=== PATIENT | female | born 1970 | race Caucasian/White ===

== ENCOUNTER 2017-12-10 09:45 | Observation (INO) | payer SELFPAY ==
[~2017-12-10] VITALS: Ht 162.6 cm; Wt 81.0 kg
[2017-12-10] MEDS ORDERED: SODIUM CHLOR 0.9% 1000 ML INJ 1,000 ML IV ONE (10:02)
--- NOTE | 2017-12-10 10:13 | PD ---
HPI Chief Complaint: Altered Mental Status Time Seen by Provider: 10:02 Travel History International Travel<30 days: No Contact w/Intl Traveler<30days: No History of Present Illness HPI 47 y/o female was found by bystanders that called an ambulance. When the ambulance team arrived on scene she appeared intoxicated. It is unknown what medication she took and how much. Patient states she took her meds but she doesn't know if she took something else. She states she is down here visiting with her boyfriend. She states she has bipolar disorder. Her medications that she had on her are gabapentin, lamotrigine, trazodone, hydroxyzine, Naproxine, rexalti per the ambulance team. History is limited on initial evaluation. [facility] Past Medical History Bipolar Disorder: Yes ?: Unknown Past Surgical History Other Surgery: Yes (tooth) Social History Alcohol Use: No Tobacco Use: No (she doesn't think so) Substance Use: No Allergies-Medications (Allergen,Severity, Reaction): Coded Allergies: No Allergy Information Available (Unverified , 12/10/17) Review of Systems ROS Limitations: Altered Mental Status Except as stated in HPI: all other systems reviewed are Neg Physical Exam Narrative GENERAL: 47-year-old female who appears drowsy but awakens to voice SKIN: Focused skin assessment warm/dry. HEAD: Atraumatic. Normocephalic. EYES: Pinpoint Pupils equal and round. No scleral icterus. No injection or drainage. ENT: No nasal bleeding or discharge. Mucous membranes pink and moist. NECK: Trachea midline. No JVD. CARDIOVASCULAR: Regular rate and rhythm. RESPIRATORY: No accessory muscle use. Clear to auscultation. Breath sounds equal bilaterally. GASTROINTESTINAL: Abdomen soft, non-tender, nondistended. MUSCULOSKELETAL: No obvious deformities. No clubbing. No cyanosis. No edema. NEUROLOGICAL: Awake and alert to name, location. Moves all extremities. Slurred speech. Data Data Last Documented VS Vital Signs Date Time Temp Pulse Resp B/P (MAP) Pulse Ox O2 Delivery O2 Flow Rate FiO2 12/10/17 10:26 97 12 119/78 (92) 98 Room Air Orders Orders Electrocardiogram (12/10/17 10:02) Complete Blood Count With Diff (12/10/17 10:02) Comprehensive Metabolic Panel (12/10/17 10:02) Prothrombin Time / Inr (Pt) (3/20/18 10:02) Act Partial Throm Time (Ptt) (12/10/17 10:02) Iv Access Insert/Monitor (12/10/17 10:02) Ecg Monitoring (12/10/17 10:02) Oximetry (12/10/17 10:02) Sodium Chloride 0.9% Flush (Ns Flush) (12/10/17 10:15) Sodium Chlor 0.9% 1000 Ml Inj (Ns 1000 M (12/10/17 10:02) Call Poison Control (12/10/17 10:02) Drug Screen, Random Urine (12/10/17 10:02) Alcohol (Ethanol) (12/10/17 10:02) Salicylates (Aspirin) (12/10/17 10:02) Tylenol (Acetaminophen) (12/10/17 10:02) [place] (Li) (12/10/17 11:26) Place In Observation (12/10/17 ) Vital Signs (Adult) Q4H (12/10/17 12:26) Activity Oob Ad Nisreen (12/10/17 12:26) Concrete Crafts[employer] / Telemetry .CONTINUOUS (12/10/17 12:26) Diet Regular Basic (12/10/17 Lunch) Sodium Chlor 0.9% 1000 Ml Inj (Ns 1000 M (12/10/17 12:26) Sodium Chloride 0.9% Flush (Ns Flush) (12/10/17 12:30) Sodium Chloride 0.9% Flush (Ns Flush) (12/10/17 21:00) Acetaminophen (Tylenol) (12/10/17 12:30) Ondansetron Inj (Zofran Inj) (12/10/17 12:30) Basic Metabolic Panel (Bmp) (12/11/17 06:00) Complete Blood Count With Diff (12/11/17 06:00) Resp Oxygen Janusz C Titrat 1-4 L (12/10/17 ) Pt Request For Service (12/10/17 12:26) Case Management Consult (12/10/17 12:26) Enoxaparin Inj (Lovenox Inj) (12/10/17 12:30) Scd Bilateral/Knee High ROSE MARY.BID (12/10/17 12:26) Peter Bilateral/Knee High ROSE MARY.QSHIFT (12/10/17 12:26) Naloxone Inj (Narcan Inj) (12/10/17 12:30) Docusate Sodium-Senna (Nathalie-Colace) (12/10/17 21:00) Magnesium Hydroxide Liq (Milk Of Magnesi (12/10/17 12:30) Sennosides (Senokot) (12/10/17 12:30) Bisacodyl Supp (Dulcolax Supp) (12/10/17 12:30) Lactulose Liq (Lactulose Liq) (12/10/17 12:30) Admit Order (Ed Use Only) (12/10/17 12:29) Consult Psychiatry (12/10/17 ) (Hub Use Only)Inp Phy Cons/Ref (12/10/17 ) Labs Laboratory Tests Test 12/10/17 10:05 12/10/17 10:08 12/10/17 11:10 Urine Opiates Screen NEG Urine Barbiturates Screen NEG Urine Amphetamines Screen POS Urine Benzodiazepines Screen POS Urine Cocaine Screen NEG Urine Cannabinoids Screen NEG White Blood Count 4.7 TH/MM3 Red Blood Count 4.41 MIL/MM3 Hemoglobin 13.3 GM/DL Hematocrit 39.0 % Mean Corpuscular Volume 88.3 FL Mean Corpuscular Hemoglobin 30.0 PG Mean Corpuscular Hemoglobin Concent 34.0 % Red Cell Distribution Width 12.2 % Platelet Count 167 TH/MM3 Mean Platelet Volume 8.2 FL Neutrophils (%) (Auto) 67.3 % Lymphocytes (%) (Auto) 19.5 % Monocytes (%) (Auto) 10.0 % Eosinophils (%) (Auto) 2.5 % Basophils (%) (Auto) 0.7 % Neutrophils # (Auto) 3.2 TH/MM3 Lymphocytes # (Auto) 0.9 TH/MM3 Monocytes # (Auto) 0.5 TH/MM3 Eosinophils # (Auto) 0.1 TH/MM3 Basophils # (Auto) 0.0 TH/MM3 CBC Comment DIFF FINAL Differential Comment Blood Urea Nitrogen 11 MG/DL Creatinine 0.88 MG/DL Random Glucose 70 MG/DL Total Protein 7.5 GM/DL Albumin 3.9 GM/DL Calcium Level 8.6 MG/DL Alkaline Phosphatase 110 U/L Aspartate Amino Transf (AST/SGOT) 43 U/L Alanine Aminotransferase (ALT/SGPT) 34 U/L Total Bilirubin 0.4 MG/DL Sodium Level 138 MEQ/L Potassium Level 4.4 MEQ/L Chloride Level 102 MEQ/L Carbon Dioxide Level 27.0 MEQ/L Anion Gap 9 MEQ/L Estimat Glomerular Filtration Rate 69 ML/MIN Salicylates Level LESS THAN 1.7 MG/DL Acetaminophen Level LESS THAN 2.0 MCG/ML Ethyl Alcohol Level LESS THAN 3 MG/DL MDM Medical Decision Making Medical Screen Exam Complete: Yes Emergency Medical Condition: Yes Medical Record Reviewed: Yes (past history confirmed) Interpretation(s) CBC & BMP Diagram 12/10/17 10:08 Total Protein 7.5, Albumin 3.9, Calcium Level 8.6, Alkaline Phosphatase 110, Aspartate Amino Transf (AST/SGOT) 43 H, Alanine Aminotransferase (ALT/SGPT) 34, Total Bilirubin 0.4 Differential Diagnosis Overdose, alcohol intoxication, electrolyte abnormality Narrative Course Will check blood work and place Pitts act and monitor ed workup shows amphetamines and benzodiazepines on urine drug screen, patient still drowsy but awakens to voice, given unknown ingestion amount and altered mental status, will place in observation for additional clearance Physician Communication Physician Communication dr machado agrees to admit Diagnosis Primary Impression: Altered mental status Qualified Codes: R41.82 - Altered mental status, unspecified Additional Impression: Overdose Qualified Codes: T50.904A - Poisoning by unspecified drugs, medicaments and biological substances, undetermined, initial encounter Admitting Information Admitting Physician Requests: Observation Melissa Kumar MD Dec 10, 2017 10:13
[2017-12-10] MEDS ORDERED: SODIUM CHLORIDE 0.9% FLUSH 10 ML FLUSH IVF PRN (10:15)
[2017-12-10 10:26] VITALS: BP 119/78; PULSE 97; RESP 12; O2SAT 98
[2017-12-10 10:42] LABS: AUTOMATED NEUTROPHIL # 3.2 TH/MM3 (1.8-7.7); BASOPHIL % 0.7 % (0.0-2.0); EOSINOPHIL # 0.1 TH/MM3 (0-0.4); EOSINOPHIL % 2.5 % (0.0-4.0); HEMOGLOBIN 13.3 GM/DL (11.6-15.3); LYMPH % 19.5 % (9.0-44.0); LYMPHOCYTE # 0.9 TH/MM3 (1.0-4.8); MEAN CELL VOLUME 88.3 FL (80.0-100.0); MEAN PLATELET VOLUME 8.2 FL (7.0-11.0); MONOCYTE # 0.5 TH/MM3 (0-0.9); NEUT % 67.3 % (16.0-70.0); PLATELET COUNT 167 TH/MM3 (150-450); RED BLOOD COUNT 4.41 MIL/MM3 (4.00-5.30); RED CELL DISTRIBUTION WIDTH 12.2 % (11.6-17.2); WHITE BLOOD COUNT 4.7 TH/MM3 (4.0-11.0)
[2017-12-10 10:58] LABS: ALKALINE PHOSPHATASE 110 U/L (45-117); TOTAL BILIRUBIN ADULT 0.4 MG/DL (0.2-1.0); TOTAL PROTEIN 7.5 GM/DL (6.4-8.2)
[2017-12-10 11:00] LABS: ALBUMIN 3.9 GM/DL (3.4-5.0); ALT (GPT) 34 U/L (10-53); AST (GOT) 43 U/L (15-37); BLOOD UREA NITROGEN 11 MG/DL (7-18); CALCIUM 8.6 MG/DL (8.5-10.1); CHLORIDE 102 MEQ/L (98-107); CREATININE 0.88 MG/DL (0.50-1.00); GLOMERULAR FILTRATION RATE 69 ML/MIN (>89); GLUCOSE,RANDOM 70 MG/DL (74-106); SODIUM (NA) 138 MEQ/L (136-145)
[2017-12-10 11:01] LABS: ACETAMINOPHEN LESS THAN 2.0 MCG/ML (10.0-30.0)
[2017-12-10] MEDS ORDERED: SODIUM CHLORIDE 0.9% FLUSH 10 ML FLUSH IV FLUSH PRN (12:30)
[2017-12-10] MEDS ORDERED: ACETAMINOPHEN 325 MG TAB PO PRN (12:30)
[2017-12-10] MEDS ORDERED: ONDANSETRON HCL 4 MG/2 ML VIAL IVP PRN (12:30)
[2017-12-10] MEDS ORDERED: LACTULOSE SYRUP 20 GM/30 ML CUP PO PRN (12:30)
[2017-12-10] MEDS ORDERED: BISACODYL 10 MG SUPP RECTAL PRN (12:30)
[2017-12-10] MEDS ORDERED: MAGNESIUM HYDROXIDE SUSP 30 ML CUP PO PRN (12:30)
[2017-12-10] MEDS ORDERED: SENNOSIDES 8.6 MG TAB PO PRN (12:30)
[2017-12-10] MEDS ORDERED: NALOXONE HCL 0.4 MG/ML AMP IV PUSH PRN (12:30)
[2017-12-10 13:22] VITALS: BP 114/78; PULSE 81; RESP 8; TEMP 97.5; O2SAT 98
--- NOTE | 2017-12-10 13:39 | HHI.HP ---
[facility] Phys[facility] Unknown Admission Diagnosis altered mental status Diagnoses: Chief Complaint: altered mental status Travel History International Travel<30 Days: No Contact w/Intl Traveler <30 Da: No History of Present Illness Written by Alanna Rahman, acting as scribe for Dr. Rojas on 12/10/17 at 13:36. 47-year-old female with history of depression, anxiety, and bipolar disorder, [place] [facility] [place] status. History is limited from the patient as she remains altered and drowsy. She is oriented to self, birthdate, knows president Marcell, knows she is in a hospital but admits she is confused on whether she is in [place] or [place], does not know the date. She is not able to recall the events leading up to her admission. [facility] reported the patient appeared intoxicated and had multiple medications on her including gabapentin, lamotrigine, trazodone, hydroxyzine, Naproxen, Rexulti. The patient is reportedly [place] from [id number] with her boyfriend and no previous medical records available in the EMR. The patient has been placed under Pitts Act by the ER for suspected overdose. Upon arrival, UDS positive for amphetamines and benzos. Etoh level wnl. CBC and BMP essentially unremarkable. She has been admitted to observation for further evaluation and treatment. Review of Systems ROS Limitations: Intoxication, Altered Mental Status Except as stated in HPI: all other systems reviewed are Neg Past Family Social History Past Medical History Bipolar disorder Depression Anxiety Past Surgical History Dental surgeries Reported Medications Reported by EMS: gabapentin, lamotrigine, trazodone, hydroxyzine, Naproxen, Rexulti Allergies: Coded Allergies: No Allergy Information Available (Unverified , 12/10/17) Active Ordered Medications Current Medications Medications (Trade) Dose Ordered Sig/Jayne Route Start Time Stop Time Status Last Admin (NS Flush) 2 ml UNSCH PRN IVF 12/10/17 10:15 Sodium Chloride 1,000 ml @ 100 mls/hr Q10H IV 12/10/17 12:26 UNV (NS Flush) 2 ml UNSCH PRN IV FLUSH 12/10/17 12:30 UNV (NS Flush) 2 ml BID IV FLUSH 12/10/17 21:00 UNV (Tylenol) 650 mg Q4H PRN PO 12/10/17 12:30 UNV (Zofran Inj) 4 mg Q6H PRN IVP 12/10/17 12:30 UNV (Lovenox Inj) 40 mg Q24H SQ 12/10/17 12:30 UNV (Narcan Inj) 0.4 mg UNSCH PRN IV PUSH 12/10/17 12:30 UNV (Nathalie-Colace) 1 tab BID PO 12/10/17 21:00 UNV (Milk Of Magnesia Liq) 30 ml Q12H PRN PO 12/10/17 12:30 UNV (Senokot) 17.2 mg Q12H PRN PO 12/10/17 12:30 UNV (Dulcolax Supp) 10 mg DAILY PRN RECTAL 12/10/17 12:30 UNV (Lactulose Liq) 30 ml DAILY PRN PO 12/10/17 12:30 UNV Family History Family history positive for hypertension, schizophrenia Social History Denies any tobacco use. Admits to occasional alcohol use. Admits to methamphetamine use, most recently last week Also admits to using LSD recently States a long time ago used heroin Physical Exam Vital Signs Vital Signs Date Time Temp Pulse Resp B/P (MAP) Pulse Ox O2 Delivery O2 Flow Rate FiO2 12/10/17 13:22 97.5 81 8 114/78 (90) 98 12/10/17 10:26 97 12 119/78 (92) 98 Room Air Physical Exam GENERAL: Well-nourished, well-developed middle aged female patient in [facility]. SKIN: Warm and dry. No rash. HEAD: Normocephalic. Atraumatic. EYES: Pupils equal and round. No scleral icterus. No injection or drainage. ENT: No nasal bleeding or discharge. Mucous membranes pink and moist. NECK: Supple. Trachea midline. CARDIOVASCULAR: Regular rate and rhythm. No murmur appreciated. RESPIRATORY: No accessory muscle use. Clear to auscultation. Breath sounds equal bilaterally. GASTROINTESTINAL: Abdomen soft, non-tender, nondistended. Normoactive bowel sounds x4. MUSCULOSKELETAL: No obvious deformities. Extremities without clubbing, cyanosis , or edema. NEUROLOGICAL: Drowsy. No obvious cranial nerve deficits. Motor grossly within normal limits. Moving all extremities spontaneously. 5/5 muscle strength of bilateral upper and lower extremities. Normal speech. No facial droop, tongue deviation, or lid lag. Laboratory Laboratory Tests Test 12/10/17 10:05 12/10/17 10:08 12/10/17 11:10 Urine Opiates Screen NEG Urine Barbiturates Screen NEG Urine Amphetamines Screen POS Urine Benzodiazepines Screen POS Urine Cocaine Screen NEG Urine Cannabinoids Screen NEG White Blood Count 4.7 Red Blood Count 4.41 Hemoglobin 13.3 Hematocrit 39.0 Mean Corpuscular Volume 88.3 Mean Corpuscular Hemoglobin 30.0 Mean Corpuscular Hemoglobin Concent 34.0 Red Cell Distribution Width 12.2 Platelet Count 167 Mean Platelet Volume 8.2 Neutrophils (%) (Auto) 67.3 Lymphocytes (%) (Auto) 19.5 Monocytes (%) (Auto) 10.0 Eosinophils (%) (Auto) 2.5 Basophils (%) (Auto) 0.7 Neutrophils # (Auto) 3.2 Lymphocytes # (Auto) 0.9 Monocytes # (Auto) 0.5 Eosinophils # (Auto) 0.1 Basophils # (Auto) 0.0 CBC Comment DIFF FINAL Differential Comment Blood Urea Nitrogen 11 Creatinine 0.88 Random Glucose 70 Total Protein 7.5 Albumin 3.9 Calcium Level 8.6 Alkaline Phosphatase 110 Aspartate Amino Transf (AST/SGOT) 43 Alanine Aminotransferase (ALT/SGPT) 34 Total Bilirubin 0.4 Sodium Level 138 Potassium Level 4.4 Chloride Level 102 Carbon Dioxide Level 27.0 Anion Gap 9 Estimat Glomerular Filtration Rate 69 Salicylates Level LESS THAN 1.7 Acetaminophen Level LESS THAN 2.0 Ethyl Alcohol Level LESS THAN 3 Result Diagram: 12/10/17 1008 12/10/17 1008 Caprini VTE Risk Assessment Caprini VTE Risk Assessment: No/Low Risk (score <= 1) Caprini Risk Assessment Model Point Value = 1 Point Value = 2 Point Value = 3 Point Value = 5 Age 41-60 Minor surgery BMI > 25 kg/m2 Swollen legs Varicose veins or History of unexplained or recurrent spontaneous Oral contraceptives or hormone replacement Sepsis (< 1 month) Serious lung disease, including pneumonia (< 1 month) Abnormal pulmonary function Acute myocardial infarction Congestive heart failure (< 1 month) History of inflammatory bowel disease Medical patient at bed rest Age 61-74 Arthroscopic surgery Major open surgery (> 45 min) Laparoscopic surgery (> 45 min) Malignancy Confined to bed (> 72 hours) Immobilizing plaster cast Central venous access Age >= 75 History of VTE Family history of VTE Factor V Leiden Prothrombin [id number] Lupus anticoagulant Anticardiolipin antibodies Elevated serum homocysteine Heparin-induced thrombocytopenia Other congenital or acquired thrombophilia Stroke (< 1 month) Elective arthroplasty Hip, pelvis, or leg fracture Acute spinal cord injury (< 1 month) Prophylaxis Regimen Total Risk Factor Score Risk Level Prophylaxis Regimen 0-1 Low Early ambulation 2 Moderate Order ONE of the following: *Sequential Compression Device (SCD) *Heparin 5000 units SQ BID 3-4 Higher Order ONE of the following medications: *Heparin 5000 units SQ TID *Enoxaparin/Lovenox 40 mg SQ daily (WT < 150 kg, CrCl > 30 mL/min) *Enoxaparin/Lovenox 30 mg SQ daily (WT < 150 kg, CrCl > 10-29 mL/min) *Enoxaparin/Lovenox 30 mg SQ BID (WT < 150 kg, CrCl > 30 mL/min) AND/OR *Sequential Compression Device (SCD) 5 or more Highest Order ONE of the following medications: *Heparin 5000 units SQ TID (Preferred with Epidurals) *Enoxaparin/Lovenox 40 mg SQ daily (WT < 150 kg, CrCl > 30 mL/min) *Enoxaparin/Lovenox 30 mg SQ daily (WT < 150 kg, CrCl > 10-29 mL/min) *Enoxaparin/Lovenox 30 mg SQ BID (WT < 150 kg, CrCl > 30 mL/min) AND *Sequential Compression Device (SCD) Assessment and Plan Problem List: (1) Toxic encephalopathy ICD Code: G92 - Toxic encephalopathy (2) Altered mental status ICD Code: R41.82 - Altered mental status, unspecified Status: Acute (3) Overdose ICD Code: T50.901A - Poisoning by unspecified drugs, medicaments and biological substances, accidental (unintentional), initial encounter Status: Acute Assessment and Plan 47-year-old female with history of depression and bipolar disorder, [place] via [facility] [place] with [place] status. History is limited from the patient as she remains altered and drowsy. Ambulance reported the patient appeared intoxicated and had multiple medications on her including gabapentin, lamotrigine, trazodone, hydroxyzine, Naproxen, Rexulti. Acute Toxic Encephalopathy: Suspect polypharmacy vs overdose. UDS positive for amphetamines and benzos. Etoh level wnl. CBC and BMP essentially unremarkable. -check lithium level -continue supportive treatment with IVF hydration, O2 as needed -monitor on telemetry -neuro checks, seizure precautions -consider head CT if no improvement Pitts Act, Possible Overdose: -consult psychiatry for further evaluation Anxiety/Depression/Bipolar Disorder: chronic -holding all medications with encephalopathy as above -RN to update med rec melinda -psychiatry consulted as above DVT Prophylaxis: Lovenox sq This note was transcribed by VALENTIN Best . I, Dr. Denae Rojas personally performed the history, physical exam, and medical decision making; and confirmed the accuracy of the information in the transcribed note. Authenticated by Dr. Denae Rojas on 12/10/17 at 13:36. Discussed Condition With Patient, ER Problem Qualifiers (1) Altered mental status: Qualified Codes: R41.82 - Altered mental status, unspecified (2) Overdose: Qualified Codes: T50.904A - Poisoning by unspecified drugs, medicaments and biological substances, undetermined, initial encounter Alanna Rahman PA-C Dec 10, 2017 13:39 Denae Rojas MD Dec 10, 2017 13:46
[2017-12-10] MEDS ORDERED: ENOXAPARIN SODIUM 40 MG/0.4 ML SYRINGE SQ SCH (14:00)
[2017-12-10 14:02] LABS: PROTHROMBIN TIME - PATIENT 10.4 SEC (9.8-11.6)
[2017-12-10] MEDS: SODIUM CHLOR 0.9% 1000 ML INJ 1,000 ML IV SCH (14:20)
--- NOTE | 2017-12-10 14:45 | EKG ---
Date Performed: 12/10/2017 Time Performed: 10:29:51 PTAGE: 47 years EKG: Sinus rhythm NORMAL ECG NO PREVIOUS TRACING DOCTOR: Dieudonne Jeronimo Interpretating Date/Time 12/10/2017 14:43:37
[2017-12-10 16:31] VITALS: BP 107/73; PULSE 81; RESP 14; TEMP 98.7; O2SAT 98
[2017-12-10 17:55] VITALS: PULSE 76
[2017-12-10 19:58] VITALS: PULSE 88
[2017-12-10] MEDS: DOCUSATE SODIUM 50 MG/SENNA 8.6 MG TAB PO SCH (20:23)
[2017-12-10] MEDS: SODIUM CHLORIDE 0.9% FLUSH 10 ML FLUSH IV FLUSH SCH (20:23)
[2017-12-10 22:09] VITALS: BP 106/63; PULSE 83; RESP 18; TEMP 98.1; O2SAT 97
[2017-12-11] VITALS: PULSE 77
[2017-12-11] MEDS: SODIUM CHLOR 0.9% 1000 ML INJ 1,000 ML IV SCH (01:04)
[2017-12-11 04:00] VITALS: PULSE 82
[2017-12-11 07:24] VITALS: BP 129/80; PULSE 78; RESP 16; TEMP 97.8; O2SAT 97
[2017-12-11 07:42] LABS: AUTOMATED NEUTROPHIL # 1.5 TH/MM3 (1.8-7.7); EOSINOPHIL # 0.1 TH/MM3 (0-0.4); HEMATOCRIT 36.7 % (35.0-46.0); HEMOGLOBIN 12.3 GM/DL (11.6-15.3); LYMPH % 29.4 % (9.0-44.0); LYMPHOCYTE # 0.8 TH/MM3 (1.0-4.8); MEAN CELL VOLUME 89.2 FL (80.0-100.0); MEAN CORPUSCULAR HGB CONC 33.6 % (32.0-36.0); MEAN PLATELET VOLUME 7.8 FL (7.0-11.0); MONO % 11.6 % (0.0-8.0); MONOCYTE # 0.3 TH/MM3 (0-0.9); PLATELET COUNT 140 TH/MM3 (150-450); RED BLOOD COUNT 4.12 MIL/MM3 (4.00-5.30); RED CELL DISTRIBUTION WIDTH 12.4 % (11.6-17.2); WHITE BLOOD COUNT 2.7 TH/MM3 (4.0-11.0)
[2017-12-11 08:15] LABS: BICARBONATE 24.9 MEQ/L (21.0-32.0); CALCIUM 7.8 MG/DL (8.5-10.1); CREATININE 0.6 MG/DL (0.50-1.00)
[2017-12-11] MEDS: SODIUM CHLORIDE 0.9% FLUSH 10 ML FLUSH IV FLUSH SCH (09:00)
[2017-12-11] MEDS: DOCUSATE SODIUM 50 MG/SENNA 8.6 MG TAB PO SCH (09:00)
--- NOTE | 2017-12-11 09:43 | HHI.DCPOC ---
Discharge Care Plan Diagnosis: (1) Altered mental status (2) Toxic encephalopathy (3) Overdose Goals to Promote Your Health * To prevent worsening of your condition and complications * To maintain your health at the optimal level Directions to Meet Your Goals Take your medications as prescribed Follow your dietary instruction Follow activity as directed Keep your appointments as scheduled Take your immunizations and boosters as scheduled If your symptoms worsen call your PCP, if no PCP go to Urgent Care Center or Emergency Room Smoking is Dangerous to Your Health. Avoid second hand smoke Call the 24-hour hour crisis hotline for domestic abuse at Alanna Rahman PA-C Dec 11, 2017 09:43
--- NOTE | 2017-12-11 09:44 | HHI.DS ---
Discharge Summary Admission Date Dec 10, 2017 at 12:29 Discharge Date: Dec 13, 2017 Admitting Diagnosis altered mental status (1) Toxic encephalopathy ICD Code: G92 - Toxic encephalopathy (2) Altered mental status ICD Code: R41.82 - Altered mental status, unspecified Status: Acute (3) Overdose ICD Code: T50.901A - Poisoning by unspecified drugs, medicaments and biological substances, accidental (unintentional), initial encounter Status: Acute Procedures none Brief History - From Admission Written by Alanna Rahman, acting as scribe for Dr. Rojas on 12/10/17 at 13:36. 47-year-old female with history of depression, anxiety, and bipolar disorder, presents via [facility] [place] with altered mental status. History is limited from the patient as she remains altered and drowsy. She is oriented to self, birthdate, knows president Marcell, knows she is in a hospital but admits she is confused on whether she is in [place] or [place], does not know the date. She is not able to recall the events leading up to her admission. [facility] reported the patient appeared intoxicated and had multiple medications on her including gabapentin, lamotrigine, trazodone, hydroxyzine, Naproxen, Rexulti. The patient is reportedly visiting from [id number] with her boyfriend and no previous medical records available in the EMR. The patient has been placed under Pitts Act by the ER for suspected overdose. Upon arrival, UDS positive for amphetamines and benzos. Etoh level wnl. CBC and BMP essentially unremarkable. She has been admitted to observation for further evaluation and treatment. CBC/BMP: 12/11/17 0635 12/11/17 0635 Significant Findings Laboratory Tests Test 12/10/17 10:05 12/10/17 10:08 12/10/17 12:20 12/11/17 06:35 Urine Amphetamines Screen POS (NEG) Urine Benzodiazepines Screen POS (NEG) Monocytes (%) (Auto) 10.0 % (0.0-8.0) 11.6 % (0.0-8.0) Lymphocytes # (Auto) 0.9 TH/MM3 (1.0-4.8) 0.8 TH/MM3 (1.0-4.8) Random Glucose 70 MG/DL (74-106) Aspartate Amino Transf (AST/SGOT) 43 U/L (15-37) Estimat Glomerular Filtration Rate 69 ML/MIN (>89) Salicylates Level LESS THAN 1.7 MG/DL Acetaminophen Level LESS THAN 2.0 MCG/ML [place] Level LESS THAN 0.1 MEQ/L White Blood Count 2.7 TH/MM3 (4.0-11.0) Platelet Count 140 TH/MM3 (150-450) Neutrophils # (Auto) 1.5 TH/MM3 (1.8-7.7) Calcium Level 7.8 MG/DL (8.5-10.1) Chloride Level 108 MEQ/L (98-107) PE at Discharge GENERAL: Well-nourished, well-developed middle aged female patient in [facility]. CARDIOVASCULAR: Regular rate and rhythm. No murmur appreciated. RESPIRATORY: No accessory muscle use. Clear to auscultation. Breath sounds equal bilaterally. GASTROINTESTINAL: Abdomen soft, non-tender, nondistended. Normoactive bowel sounds x4. MUSCULOSKELETAL: No obvious deformities. Extremities without clubbing, cyanosis , or edema. NEUROLOGICAL: More awake and alert back at her baseline, No obvious cranial nerve deficits. Motor grossly within normal limits. Moving all extremities spontaneously. 5/5 muscle strength of bilateral upper and lower extremities. Normal speech. No facial droop, tongue deviation, or lid lag. Pt update on day of discharge Ambulating feels much better .more awake and alert No events overnight. No cp, sob, n/v/d/c. Hospital Course 47-year-old female with history of depression and bipolar disorder, [place] via [facility] [place] status. History is limited from the patient as she remains altered and drowsy. Ambulance reported the patient appeared intoxicated and had multiple medications on her including gabapentin, lamotrigine, trazodone, hydroxyzine, Naproxen, Rexulti. Acute Toxic Encephalopathy: Resollved. Suspect polypharmacy vs overdose. UDS positive for amphetamines and benzos. Etoh level wnl. CBC and BMP essentially unremarkable. -check lithium level -continue supportive treatment with IVF hydration, O2 as needed -monitor on telemetry -neuro checks, seizure precautions -consider head CT if no improvement Pitts Act, Possible Overdose: -consult psychiatry for further evaluation Anxiety/Depression/Bipolar Disorder: chronic -holding all medications with encephalopathy as above -RN to update med rec melinda -psychiatry consulted as above DVT Prophylaxis: Lovenox sq This note was transcribed by VALENTIN Best . I, Dr. Denae Rojas personally performed the history, physical exam, and medical decision making; and confirmed the accuracy of the information in the transcribed note. Authenticated by Dr. Denae Rojas on 12/10/17 at 13:36. Discussed Condition With Patient, nurse, Dr Terrell from psych Patient is ambulating. Back at baseline mentation. Cleared medically for DC . Discharge to psych unit. Pt Condition on Discharge: Stable Discharge Disposition: Disc to Psych Care Fac Discharge Time: > 30 minutes Discharge Instructions DIET: Follow Instructions for: As Tolerated, No Restrictions Activities you can perform: Regular-No Restrictions Follow up Referrals: PCP Follow-up - 1 Week Psychiatry Adult - Today Denae Rojas MD Dec 11, 2017 09:44
[2017-12-11] MEDS ORDERED: QUEtiapine FUMARATE 25 MG TAB PO ONE (09:45)
[2017-12-11 11:14] VITALS: BP 136/83; PULSE 94; RESP 18; TEMP 98.3; O2SAT 95
[2017-12-11] MEDS ORDERED: TRAZ50TA12 PO ×2 (12:01)
[2017-12-11] MEDS ORDERED: NEUR800T PO ×2 (12:01)
[2017-12-11] MEDS ORDERED: BUSP10TA PO ×2 (12:01)
[2017-12-11] MEDS ORDERED: LAMI200T PO ×2 (12:01)
[2017-12-11] MEDS ORDERED: BREX1TAB6 PO ×2 (12:01)
[2017-12-12] MEDS ORDERED: SERO25TA PO (15:52)
== END 2017-12-11 12:46 ==
LOC: NEPE 09:45 → NEDA 12:29 → NEPGCP 16:17
PROVIDERS: ADMIT Hospitalist; ATTEND Hospitalist
DX: G92 Toxic encephalopathy (principal); R41.82 Altered mental status, unspecified; T50.904A Poisoning by unspecified drugs, medicaments and biological substances, undetermined, initial encounter; F31.9 Bipolar disorder, unspecified; F41.9 Anxiety disorder, unspecified; F15.90 Other stimulant use, unspecified, uncomplicated
CPT/HCPCS: 80048; 80053; 80178; 80307; 85025; 85610; 85730; 93005; 96360; 96361; 96372; 99285; G0378; J1650; J7030

== ENCOUNTER 2017-12-11 11:58 | Inpatient (IN) | payer SELFPAY ==
[2017-12-11] MEDS ORDERED: TRAZ50TA12 PO ×2 (12:01)
[2017-12-11] MEDS ORDERED: LAMI200T PO ×2 (12:01)
[2017-12-11] MEDS ORDERED: BREX1TAB6 PO ×2 (12:01)
[2017-12-11] MEDS ORDERED: NEUR800T PO ×2 (12:01)
[2017-12-11] MEDS ORDERED: BUSP10TA PO ×2 (12:01)
[2017-12-11] MEDS ORDERED: LORazepam 1 MG TAB PO PRN ×2 (13:30→18:00)
[2017-12-11] MEDS ORDERED: MAGNESIUM HYDROXIDE SUSP 30 ML CUP PO PRN (13:30)
[2017-12-11] MEDS: busPIRone HCL 10 MG TAB PO SCH ×2 (13:30→21:07)
[2017-12-11] MEDS ORDERED: ALUMINUM/MAGNESIUM/SIMETH 30 ML CUP PO PRN (13:30)
[2017-12-11] MEDS ORDERED: LORazepam 0.5 MG TAB PO PRN (13:30)
[2017-12-11] MEDS ORDERED: ACETAMINOPHEN 325 MG TAB PO PRN (13:30)
[2017-12-11] MEDS ORDERED: LORazepam 2 MG/ML VIAL IM PRN ×2 (13:30)
[2017-12-11] MEDS: lamoTRIgine 100 MG TAB PO SCH (13:30)
--- NOTE | 2017-12-11 13:44 | HHI.HP ---
Provisional Diagnosis Admission Date Dec 11, 2017 at 13:05 Rampart I. Unspecified psychosis, history of schizoaffective, bipolar type, amphetamines and hypnotic-sedative use disorder, Rampart II. Deferred Rampart III. No significant medical Certification of Person's Competence To Provide Express and Informed Consent I have personally examined Zita Paniagua , a person being served at [facility] on, Dec 11, 2017 13:34. Express and informed consent means consent voluntarily given in writing, by a competent person, after sufficient explanation and disclosure of the subject matter involved to enable the person to make a knowing and willful decision without any element of force, fraud, deceit, duress, or other form of constraint or coercion. This person is 18 years of age or older, is not now known to be incompetent to consent to treatment with a guardian advocate, and does not have a health care surrogate or proxy currently making medical treatment decisions. I have found this person to be one of the following: [] Competent to provide express and informed consent, as defined above, for voluntary admission to this facility and is competent to provide express and informed consent for treatment. He/she has the consistent capacity to make well reasoned, willful, and knowing decisions concerning his or her medical or mental health treatment. The person fully and consistently understands the purpose of the admission for examination/placement and is fully capable of personally exercising all rights assured [place] [] Incompetent to provide express and informed consent to voluntary admission, and this is incompetent to provide express and informed consent to treatment. The person must be transferred to involuntary status and a petition for a guardian advocate filed with the Circuit Court. [x] Refusing to provide express and informed consent to voluntary admission but is competent to provide express and informed consent for treatment. The person must be discharged or transferred to involuntary status. Form shall be completed within 24 hours of a person's arrival at the receiving facility and filed in the clinical record of each person: 1. Admitted on a voluntary basis 2. Permitted to provide express and informed consent to his/her own treatment 3. Allowed to transfer from involuntary to voluntary status 4. Prior to permitting a person to consent to his or her own treatment after having been previously found incompetent to consent to treatment. History of Present Illness Capacity: Has Capacity HPI The patient is a 47-year-old woman, domiciled in [facility] with her boyfriend, [place] [place], unemployed, on SSI, with psychiatric history of schizoaffective disorder, bipolar disorder, anxiety , multiple psychiatric hospitalizations, suicide attempts, she has outpatient psychiatric care in [place] with private psychiatrist, she reports that she is in BuSpar 10 mg 3 times daily, Lamictal 200 mg 3 times daily, trazodone 100 mg at bedtime, no significant medical history, who [place] [facility]AC [place]. Initially history was limited from the patient as she remains altered and drowsy. She is oriented to self, birthdate, knows president Marcell, knows she is in a hospital but admits she is confused on whether she is in [place] or [place], does not know the date. She is not able to recall the events leading up to her admission. EVAC reported the patient appeared intoxicated and had multiple medications on her including gabapentin, lamotrigine, trazodone, hydroxyzine, Naproxen, Rexulti. The patient is [place] from [id number] with her boyfriend and no previous medical records available in the EMR. The patient has been placed under [place] Act by the ER for suspected overdose. Upon arrival, UDS positive for amphetamines and benzos. Etoh level wnl. On psychiatric evaluation the patient is quite disorganized, labile, crying profusely. Patient states that she had an argument with her boyfriend, her boyfriend left her in a motel. Patient is quite confused, she says that she is from [place], but minutes later she says that she is from [facility]. She states that she has been using drugs with her boyfriend here and they do not appear he has been using Adderall and Xanax, also alcohol sometimes. Patient has a prominent thought blocking, speech delay, seems to be internally preoccupied and paranoid. She denies suicidal and homicidal ideation, she denies visual and auditory hallucinations. Patient is unable to provide much history due to the level of disorganization. Review of Systems Constitutional: DENIES: Diaphoretic episodes, Fatigue, Fever, Weight gain, Weight loss, Chills, Dizziness, Change in appetite, Night Sweats Endocrine: DENIES: Abnorml menstrual pattern, Heat/cold intolerance, Polydipsia , Polyuria, Polyphagia Eyes: DENIES: Blurred vision, Diplopia, Eye inflammation, Eye pain, Vision loss , Photosensitivity, Double Vision Ears, nose, mouth, throat: DENIES: Tinnitus, Hearing loss, Vertigo, Nasal discharge, Oral lesions, Throat pain, Hoarseness, Ear Pain, Running Nose, Epistaxis, Sinus Pain, Toothache, Odynophagia Respiratory: DENIES: Apneas, Cough, Snoring, Wheezing, Hemoptysis, Sputum production, Shortness of breath Cardiovascular: DENIES: Chest pain, Palpitations, Syncope, Dyspnea on Exertion , PND, Lower Extremity Edema, Orthopnea, Claudication Gastrointestinal: DENIES: Abdominal pain, Black stools, Bloody stools, Constipation, Diarrhea, Nausea, Vomiting, Difficulty Swallowing, Anorexia Genitourinary: DENIES: Abnormal vaginal bleeding, Dysmenorrhea, Dyspareunia, Sexual dysfunction, Urinary frequency, Urinary incontinence, Urgency, Hematuria , Dysuria, Nocturia, Vaginal discharge Musculoskeletal: DENIES: Joint pain, Muscle aches, Stiffness, Joint Swelling, Back pain, Neck pain Integumentary: DENIES: Abnormal pigmentation, Pruritus, Rash, Nail changes, Breast masses, Breast skin changes, Nipple discharge Hematologic/lymphatic: DENIES: Bruising, Lymphadenopathy Immunologic/allergic: DENIES: Eczema, Urticaria Neurologic: DENIES: Abnormal gait, Headache, Localized weakness, Paresthesias, Seizures, Speech Problems, Tremor, Poor Balance Psychiatric: COMPLAINS OF: Confusion, Delusions, DENIES: Anxiety, Mood changes , Depression, Hallucinations, Agitation, Suicidal Ideation, Homicidal Ideation Substance Abuse History Drugs/Alcohol past 12 months Patient reports the abuse of amphetamines, Xanax, alcohol Past Family Social History Coded Allergies: No Allergy Information Available (Unverified , 12/10/17) Reported Medications Brexpiprazole (Rexulti) 4 Mg Tab, 4 MG PO DAILY, TAB 12/11/17 Trazodone (Trazodone) 50 Mg Tab, 50 MG PO HS for Control Depression, #30 TAB 0 Refills 12/11/17 Buspirone (Buspirone) 10 Mg Tab, 10 MG PO BID for Anxiety, TAB 0 Refills 12/11/17 Lamotrigine (Lamictal) 200 Mg Tab, 200 MG PO DAILY for Control Seizures, #30 TAB 0 Refills 12/11/17 Gabapentin (Neurontin) 800 Mg Tab, 800 MG PO QID, #90 TAB 0 Refills 12/11/17 Current Medications Medications (Trade) Dose Ordered Sig/Jayne Route Start Time Stop Time Status Last Admin (Buspar) 10 mg BID PO 12/11/17 13:30 (Neurontin) 800 mg QID PO 12/11/17 18:00 (LaMICtal) 200 mg DAILY PO 12/11/17 13:30 (Desyrel) 50 mg HS PO 12/11/17 21:00 UNV Family Psych History Her mother has schizophrenia Social History Patient was born and raised in [facility], she is here on vacation , she has a boyfriend, Patient's Strengths (min. 2) Outpatient psychiatric care Mental Status Examination Appearance: Appropriate Consciousness: Alert Orientation: Person, Date/Time Motor Activity: Normal gait Speech: Hesitant Language: Adequate Fund of Knowledge: Inadequate Attention and Concentration: Inadequate Memory: Impaired Mood: Sad Affect: Labile Thought Process & Associations: Loose associations, Disorganized Thought Content: Bizarre thinking, Delusional Hallucination Type: None Delusion Type: Paranoid Suicidal Ideation: No Suicidal Plan: No Suicidal Intention: No Homicidal Ideation: No Homicidal Plan: No Homicidal Intention: No Insight: Poor Judgment: Poor Assessment & Plan Problem List: (1) Unspecified psychosis ICD Codes: F29 - Unspecified psychosis not due to a substance or known physiological condition Assessment & Plan: Patient presents disorganized, paranoid, with prominent thought blocking and speech delay, she also presents confusion and disorientation. She has history of schizoaffective disorder, depression and anxiety. She reports that she has outpatient psychiatric care in [place]. Patient at this moment is poor historian, poorly reliable. No collateral information available at the moment. Due to the level of psychosis and disorganization, the patient represents an acute risk of danger to self and other. Patient will be admitted in psychiatry for stabilization and safety. We will restart Lamictal 100 mg twice daily, BuSpar 10 mg 3 times daily, trazodone 100 mg, and Seroquel 25 mg twice daily for psychosis. Collateral information is still pending. wafer production lead worker intervention for psychosocial assessment, collateral information, to provide a safe discharge planning. Patient also will be placed in a [facility] protocol Assessment & Plan Estimated LOS: Doe Richards MD Dec 11, 2017 13:44
[2017-12-11] MEDS: NICOTINE 21 MG/24 HR PATCH T-DERMAL SCH (14:00)
[2017-12-11] MEDS: GABAPENTIN 400 MG CAP PO SCH ×2 (17:47→21:07)
[2017-12-11] MEDS ORDERED: FLUMAZENIL 0.5 MG/5 ML VIAL IV PUSH PRN (18:00)
[2017-12-11] MEDS ORDERED: LORazepam 2 MG TAB PO PRN (18:00)
[2017-12-11] MEDS ORDERED: LORazepam 2 MG/ML VIAL IV PUSH PRN ×4 (18:00)
[2017-12-11] MEDS ORDERED: traZODone HCL 50 MG TAB PO SCH (21:00)
[2017-12-11] MEDS: QUEtiapine FUMARATE 25 MG TAB PO SCH (21:08)
[2017-12-12 05:28] VITALS: BP 116/76; PULSE 80; RESP 17; TEMP 97.8; O2SAT 100
[2017-12-12] MEDS: lamoTRIgine 100 MG TAB PO SCH (08:35)
[2017-12-12] MEDS: busPIRone HCL 10 MG TAB PO SCH (08:35)
[2017-12-12] MEDS: NICOTINE 21 MG/24 HR PATCH T-DERMAL SCH (08:35)
[2017-12-12] MEDS: GABAPENTIN 400 MG CAP PO SCH ×3 (08:35→17:11)
[2017-12-12] MEDS: QUEtiapine FUMARATE 25 MG TAB PO SCH (08:35)
[2017-12-12] MEDS ORDERED: FOLIC ACID 1 MG TAB PO SCH (09:00)
[2017-12-12] MEDS ORDERED: MULTIVITAMINS/MINERALS THERAPEUTIC TAB PO SCH (09:00)
[2017-12-12] MEDS ORDERED: THIAMINE HCL 100 MG TAB PO SCH (09:00)
[2017-12-12 09:32] LABS: BICARBONATE 25.5 MEQ/L (21.0-32.0); BLOOD UREA NITROGEN 4 MG/DL (7-18); CALCIUM 9.3 MG/DL (8.5-10.1); CHLORIDE 106 MEQ/L (98-107); CHOLESTEROL 204 MG/DL (120-200); CREATININE 0.77 MG/DL (0.50-1.00); GLOMERULAR FILTRATION RATE 81 ML/MIN (>89); GLUCOSE,RANDOM 118 MG/DL (74-106); HDL CHOLESTEROL 45.3 MG/DL (40.0-60.0); LDL CHOLESTEROL 131 MG/DL (0-99); SODIUM (NA) 141 MEQ/L (136-145); TRIGLYCERIDES 139 MG/DL (42-150)
[2017-12-12] MEDS ORDERED: SERO25TA PO (15:52)
--- NOTE | 2017-12-12 15:57 | HHI.DS ---
Psychiatry Discharge Summary Inpatient Psychiatric care?: Yes Advance Directive: No Reason Not Provided: Mental Health AdvanceDirective: No Health Care Proxy: No Admission Admission Date Dec 11, 2017 at 13:05 Admission Diagnosis: (1) Brief psychotic disorder ICD Code: F23 - Brief psychotic disorder Brief History The patient is a 47-year-old woman, domiciled in [facility] with her boyfriend, she is [place] [facility] [place], unemployed, on SSI, with psychiatric history of schizoaffective disorder, bipolar disorder, anxiety , multiple psychiatric hospitalizations, suicide attempts, she has outpatient psychiatric care in [place] with private psychiatrist, she reports that she is in BuSpar 10 mg 3 times daily, Lamictal 200 mg 3 times daily, trazodone 100 mg at bedtime, no significant medical history, who presents via EVAC [place] with [place] mental status. Initially history was limited from the patient as she remains altered and drowsy. She is oriented to self, birthdate, knows president Marcell, knows she is in a hospital but admits she is confused on whether she is in [place] or [place], does not know the date. She is not able to recall the events leading up to her admission. EVAC reported the patient appeared intoxicated and had multiple medications on her including gabapentin, lamotrigine, trazodone, hydroxyzine, Naproxen, Rexulti. The patient is [id number] with her boyfriend and no previous medical records available in the EMR. The patient has been placed under [place] Act by the ER for suspected overdose. Upon arrival, UDS positive for amphetamines and benzos. Etoh level wnl. On psychiatric evaluation the patient is quite disorganized, labile, crying profusely. Patient states that she had an argument with her boyfriend, her boyfriend left her in a motel. Patient is quite confused, she says that she is from [place], but minutes later she says that she is from [facility]. She states that she has been using drugs with her boyfriend here and they do not appear he has been using Adderall and Xanax, also alcohol sometimes. Patient has a prominent thought blocking, speech delay, seems to be internally preoccupied and paranoid. She denies suicidal and homicidal ideation, she denies visual and auditory hallucinations. Patient is unable to provide much history due to the level of disorganization. Tobacco Use In Past 30 Days: Cigarettes But Not Daily Alcohol Use: 2-3 Times Per Week Hospital Course Patient seen today with nurse Luis, patient alert oriented calm cooperative acknowledging misusing medications that for her boyfriends. She does acknowledge past history mental health issues. She also denies suicidality homicidality voices or visions. The nurses talk to patient boyfriend and feels safe picking up today and the 2 of them returning to [facility]. Patient has sufficient overall medications. She has been started on Seroquel- year-old right month supply of that. Thus patient be discharged today per boyfriend to return home to [facility] for further care and attention she may continue her on schedule medications with the addition of the Seroquel. Also referral to local substance abuse treatment Center Results Blood Pressure 116 / 76 Vital Signs Date Time Temp Pulse Resp B/P (MAP) Pulse Ox O2 Delivery O2 Flow Rate FiO2 12/12/17 05:28 97.8 80 17 116/76 (89) 100 Laboratory Tests Test 12/12/17 08:17 Blood Urea Nitrogen 4 MG/DL (7-18) Random Glucose 118 MG/DL (74-106) Estimat Glomerular Filtration Rate 81 ML/MIN (>89) Cholesterol Level 204 MG/DL (120-200) LDL Cholesterol 131 MG/DL (0-99) Laboratory Results Test 12/12/17 08:17 Cholesterol Level 204 MG/DL (120-200) HDL Cholesterol 45.3 MG/DL (40.0-60.0) LDL Cholesterol 131 MG/DL (0-99) Triglycerides Level 139 MG/DL (42-150) Summary of Procedures None done Pending results at discharge: No Medications # of Antipsychotic meds at D/C: 1 Approp Antipsych med options 1 - Minimum of three failed multiple trials of monotherapy. 2 - Documented plan to taper to monotherapy due to previous use of multiple meds OR cross-taper in progress at D/C. 3 - Documentation of augmentation of Clozapine. 4 - Justification other than those listed in allowable values 1-3, document here : Discharge Discharge Date: Dec 12, 2017 Discharge Diagnosis: (1) Brief psychotic disorder Diagnosis: Principal ICD Code: F23 - Brief psychotic disorder Pt Condition on Discharge: Stable Discharge Disposition: Discharge Home Discharge Instructions Diet Instructions: As Tolerated, No Restrictions Activities you can perform: Regular-No Restrictions Scheduled Appointment: follow-up mental health services in [facility] Discharge Time > 30 minutes Mental Status Examination Appearance: Appropriate Consciousness: Alert Orientation: Person, Date/Time Motor Activity: Normal gait Speech: Hesitant Language: Adequate Fund of Knowledge: Inadequate Attention and Concentration: Inadequate Memory: Impaired Mood: Sad Affect: Labile Thought Process & Associations: Loose associations, Disorganized Thought Content: Bizarre thinking, Delusional Hallucination Type: None Delusion Type: Paranoid Suicidal Ideation: No Suicidal Plan: No Suicidal Intention: No Homicidal Ideation: No Homicidal Plan: No Homicidal Intention: No Insight: Poor Judgment: Poor Discharge/Advance Care Plan Health Problems: (1) Unspecified psychosis Goals to promote your health * To prevent worsening of your condition and complications * To maintain your health at the optimal level Directions to meet your goals Take your medications as prescribed Follow your dietary instruction Follow activity as directed Keep your appointments as scheduled Take your immunizations and boosters as scheduled If your symptoms worsen call your PCP, if no PCP go to Urgent Care Center or Emergency Room For 24/ questions related to your inpatient stay or results of tests pending at discharge, please contact Dr. Dominick Rosen at Smoking is Dangerous to Your Health. Avoid second hand smoking Dominick Rosen MD Dec 12, 2017 15:57
[2017-12-13 19:01] LABS: HEMOGLOBIN A1C 5.2 % (4.3-6.0)
== END 2017-12-12 21:20 | disposition home or self-care (01) | DRG 885 ==
LOC: H260 13:05
PROVIDERS: ADMIT Psychiatry & Neurology Psychiatry; ATTEND Psychiatry & Neurology Psychiatry
DX: F23 Brief psychotic disorder (principal); F32.9 Major depressive disorder, single episode, unspecified; F41.9 Anxiety disorder, unspecified; F17.210 Nicotine dependence, cigarettes, uncomplicated; F10.10 Alcohol abuse, uncomplicated; F15.10 Other stimulant abuse, uncomplicated; Z91.5 Personal history of self-harm; Z81.8 Family history of other mental and behavioral disorders; Z79.899 Other long term (current) drug therapy
CPT/HCPCS: 80048; 80061; 83036